=== PATIENT | male | born 1985 | race Two or more races ===

== ENCOUNTER → 2019-02-11 | Outpatient (CLI) | payer OTHER ==
--- NOTE | 2019-02-11 13:51 | RAD ---
MR of the left knee HISTORY: Left anterior knee pain for one year. No known injury. TECHNIQUE: Routine multiplanar sequences are obtained. FINDINGS: No evidence of medial meniscal tear. No evidence of lateral meniscal tear. Anterior and posterior cruciate ligaments are intact. Medial collateral ligament is intact. Iliotibial band unremarkable. Fibular collateral ligament, biceps femoris tendon and popliteus tendon are intact. The extensor mechanism is intact. Minimal proximal patellar tendon signal or tendinosis. Small joint effusion. No acute articular cartilage defect. No acute fracture or aggressive bone destruction. No significant Mooney's cyst. IMPRESSION: No evidence of meniscal tear or internal derangement. Electronically signed by: Valentino Santiago MD (02/11/2019 1:48 PM) [id number]
== END | disposition home or self-care (01) ==
LOC: MRI 10:20
PROVIDERS: ATTEND Family Medicine
DX: M25.462 Effusion, left knee (principal)
CPT/HCPCS: 73721